=== PATIENT | male | born 1970 | race American Indian/Alaskan Native ===

== ENCOUNTER 2016-06-15 09:48 | Emergency (ER) | payer OTHER ==
[2016-06-15 10:21] VITALS: PULSE 96; RESP 20; TEMP 98; O2SAT 99
--- NOTE | 2016-06-15 10:38 | ED PDOC ---
Lower Extremity Pain/Injury Time Seen by Provider: 06/15/16 10:37 Chief Complaint (Nursing): Lower Extremity Problem/Injury Chief Complaint (Provider): foot pain History Per: Patient Additional Complaint(s): 45-year-old male with history of hypertension presents to emergency department with atraumatic pain to right great toe that started 2 days ago. Patient noticed some swelling and erythema to the same toe today. No fever or chills. No meds taken for pain relief. No numbness or tingling to the affected area. Past Medical History Reviewed: Historical Data, Nursing Documentation, Vital Signs Vital Signs: Last Vital Signs Temp 98 F 06/15/16 10:19 Pulse 96 H 06/15/16 10:19 Resp 20 06/15/16 10:19 BP 181/105 H 06/15/16 10:19 Pulse Ox 99 06/15/16 10:19 - Medical History PMH: HTN (06/15/16 NON COMPLIANT) - Surgical History Surgical History: No Surg Hx - Family History Family History: States: No Known Family Hx - Living Arrangements Living Arrangements: With Family - Social History Current smoker - smoking cessation education provided: No Alcohol: Social Drugs: Denies - Home Medications Home Medications: Ambulatory Orders Medication Instructions Recorded Colchicine [Colcrys] 0.6 mg PO BID #6 tab 06/15/16 Indomethacin [Indocin] 25 mg PO TID PRN #30 cap 06/15/16 - Allergies Allergies/Adverse Reactions: Allergies Allergy/AdvReac Type Severity Reaction Status Date / Time No Known Allergies Allergy Verified 06/15/16 10:19 Wells Criteria for PE - Wells Criteria for Pulmonary Embolism Clinical Signs and Symptoms of DVT: No P.E is #1 Diagnosis, or Equally Likely: No Heart Rate >100: No Immobilization at least 3 days;Surgery previous 4 weeks: No Previous, objectively diagnosed PE or DVT: No Hemoptysis: No Malignancy w/treatment within 6 months, or palliative: No Total Score: 0 Review of Systems ROS Statement: Except As Marked, All Systems Reviewed And Found Negative Constitutional: Negative for: Fever Musculoskeletal: Positive for: Foot Pain (right great toe pain for 2 days, denies trauma) Physical Exam - Reviewed Nursing Documentation Reviewed: Yes Vital Signs Reviewed: Yes - Physical Exam Appears: Positive for: Well, Non-toxic, No Acute Distress Skin: Negative for: Rash Cardiovascular/Chest: Positive for: Regular Rate, Rhythm Respiratory: Positive for: Normal Breath Sounds Extremity: Positive for: Other (Mild swelling and tenderness noted to right great toe, point tenderness to distal right first metatarsal, no clinical cellulitis, toenail intact with no discoloration, normal distal sensation, normal capillary refill) Neurologic/Psych: Positive for: Alert, Oriented - ECG O2 Sat by Pulse Oximetry: 99 Pulse Ox Interpretation: Normal - Other Rad right great toe x-ray X-Ray: Interpreted by Me, Viewed By Me X-Ray Interpretation: no fx, no dis Medical Decision Making Medical Decision Makin45 year old with right toe pain, denies trauma Plan: Toradol IM X-ray right foot X-ray negative. Toradol helped the pain. Impression: Gout Rx given for indocin and colchicine. Podiatry clinic referral given. BP elevated in ED, patient denies any chest pain, shortness of breath, dizziness , headache, vision changes. He states he has been noncompliant with hypertension meds for about one year. Patient was instructed to follow up as soon as possible with primary doctor to restart hypertension meds. Disposition - Clinical Impression Clinical Impression: Gout, Hypertension - Patient ED Disposition Is Patient to be Admitted: No Counseled Patient/Family Regarding: Diagnosis, Need For Followup, Rx Given - Disposition Referrals: Podiatry Clinic [Outside] Disposition: Routine/Home Disposition Time: 11:38 Condition: STABLE Additional Instructions: Take rx meds as directed. Follow up with primary care doctor in 1-2 days or with podiatry clinic. Prescriptions: Colchicine [Colcrys] 0.6 mg PO BID #6 tab Indomethacin [Indocin] 25 mg PO TID PRN #30 cap PRN Reason: Pain, Moderate (4-7) Instructions: Gout (ED), Hypertension (ED)
[2016-06-15 12:00] VITALS: BP 150/90
--- NOTE | 2016-06-15 12:42 | RAD ---
PROCEDURE: Radiographs of the right great toe. TECHNIQUE:: AP radiograph of the right foot, with oblique and lateral view of the right great toe. COMPARISON: None. FINDINGS: BONES: Minor hallux valgus deformity with mild DJD 1st MTP joint. Small plantar and calcaneal enthesophytes are present JOINTS: As above SOFT TISSUES: Normal. OTHER FINDINGS: None. IMPRESSION: No evidence of acute displaced fracture nor dislocation.
== END 2016-06-15 12:01 | disposition home or self-care (01) ==
LOC: H.ER 09:48
DX: M10.9 Gout, unspecified (principal); I10 Essential (primary) hypertension